=== PATIENT | female | born 1985 | race Caucasian/White ===

== ENCOUNTER 2020-10-05 22:58 | Observation (INO) | payer SELFPAY ==
[2020-10-06 00:15] VITALS: BMI 27.2
[2020-10-06] MEDS ORDERED: Acetaminophen 650 MG Suppository PR PRN (04:13)
[2020-10-06] MEDS ORDERED: Acetaminophen 325 MG TAB PO PRN (04:13)
[2020-10-06] MEDS ORDERED: HYDROcodone/Acetaminophen 5/325 mg Tablet PO PRN (04:13)
[2020-10-06] MEDS ORDERED: Ondansetron ODT 4 MG TAB PO PRN (04:13)
[2020-10-06] MEDS ORDERED: Calcium Carbonate 500 MG ChewTAB PO PRN (04:13)
--- NOTE | 2020-10-06 04:23 | PDOC.HHP ---
Hospitalist HPI - History of Present Illness L sided numbness History of Present Illness: Case of an 35y/o female with pmhx of ADHD who comes to hospital due to L sided numbness. patient refers she was on her usual state of health until today when while driving home she noted her that the L part of her mouth was numb with some associated drooling, she stated got home and took a bath and tried to sleep it off but the she began with L sided arm and leg numbness and paresthesia for which she decided to comes to hospital for evaluation. patient denies any focal motor deficiet, denies any previous similar events in the past. of note patient went skiing a few weeks back and had a couple of falls, also had a cupping massage yesterday. due to symptoms concerning for stroke hospitalist was called for admission. patient also denies any fever chills n/v or cough Hospitalist ROS - Review of Systems All other systems reviewed; all pertinent +/- noted in HPI/Subj Hospitalist History - Past Surgical History Past Surgical History: reports: - Family History Family History: reports: no pertinent history - Social History Smoking Status: Never smoker Alcohol: reports: None Drugs: reports: none Living Situation: With Family - Exam General Appearance: NAD, awake alert Eye: PERRL, anicteric sclera ENT: normocephalic atraumatic, no oropharyngeal lesions Neck: supple, symmetric, no JVD Heart: RRR, no murmur, no gallops Respiratory: CTAB, no wheezes, no rales Gastrointestinal: soft, non-tender, non-distended Extremities: no cyanosis, no clubbing, no edema Skin: normal turgor, no lesions, no rashes Neurological: cranial nerve grossly intact, normal sensation to touch Musculoskeletal: normal tone, normal strength, no muscle wasting Psychiatric: normal affect, normal behavior, A&O x 3 Hospitalist H&P A/P - Problem (1) CVA (cerebral vascular accident) Code(s): I63.9 - CEREBRAL INFARCTION, UNSPECIFIED Status: Acute - Plan Plan: case of an 35y/o female with the stated pmhx who presents with stroke like symptoms cva r/o - head ct negative for bleeding - mri -2d echo - carotid doppler - neurology evaluation - on secondary prevention with asa + statin - evaluation of modifiable risk factors with a1c + lipid panel - obs admit
[2020-10-06 07:55] VITALS: TEMP 97.6
[2020-10-06] MEDS ORDERED: Enoxaparin Sodium 40 MG/0.4 ML SYRINGE SC SCH (09:00)
[2020-10-06] MEDS ORDERED: Aspirin 81 mg Enteric Coated Tablet PO SCH (09:00)
--- NOTE | 2020-10-06 10:34 | MRI ---
MRI BRAIN NONCONTRAST: DATE: 10/06/2020. TIME: 8:21 a.m. HISTORY: A 35-year-old female with TIA. Acute onset numbness of left side of face, left upper extremity, an d lower extremity. FINDINGS: The ventricles are normal in size and configuration. In the left posterior frontal centrum semiovale , there is a tiny 0.7 x 0.4 x 0.4 cm T2 and FLAIR hyperintense lesion without restricted diffusion or associated hemorrhage. This is nonspecific. Statistically, this is most likely to represent a tiny focus of minimal chronic ischemic white matter change or migraine lesion. The other possibility of multiple sclerosis is less likely because it is only a single lesion, although that diagnosis is not ruled out. No evidence of acute infarction. Otherwise, there is no major intraaxial signal abnormal ity, restricted diffusion, midline shift or any other mass effect, recent intraaxial hemorrhage, or e xtraaxial fluid collection. IMPRESSION: 1. Single tiny left cerebral white matter lesion. 2. Otherwise, negative. jnR POS: JIN
[2020-10-06 11:49] VITALS: BP 107/61
--- NOTE | 2020-10-06 12:38 | PDOC.HOSPP ---
- Subjective Encounter Date: 10/06/20 Encounter Time: 10:15 Subjective: had left sided facial and exre numbness with tingling which has resolved now no weakness in any extremity, is amb in room no prior cva, fever, cough or sob - Objective Vital Signs & Weight: Vital Signs (12 hours) Temp Pulse Resp BP Pulse Ox 10/06/20 11:48 97.6 F 70 16 107/61 100 10/06/20 07:55 97.6 F 66 16 159/93 H 94 L 10/06/20 04:13 97.2 F L 66 18 90/53 L 99 Weight Weight 158 lb 14.4 oz I&O: 10/05/20 10/06/20 10/07/20 06:59 06:59 06:59 Intake Total 200 240 Balance 200 240 Hospitalist ROS - Medication Medications: Active Medications Generic Name Dose Route Start Last Admin Trade Name Freq PRN Reason Stop Dose Admin Aspirin 81 mg 10/06/20 09:00 10/06/20 08:29 Aspirin 81 Mg Enteric Coated Tablet PO 81 mg DAILY SUSHILA Administration Enoxaparin Sodium 40 mg 10/06/20 09:00 10/06/20 08:30 Enoxaparin Sodium 40 Mg/0.4 Ml Syringe SC 40 mg 0900 SUSHILA Administration - Exam General Appearance: awake alert Eye: PERRL, anicteric sclera ENT: no oropharyngeal lesions, moist mucosa Neck: supple, no JVD Heart: RRR, no murmur Respiratory: no wheezes, no rales Gastrointestinal: soft, non-tender, non-distended, normal bowel sounds Extremities: no cyanosis, no edema Neurological: cranial nerve grossly intact, no focal deficits Psychiatric: normal affect, A&O x 3 Hosp A/P (1) TIA (transient ischemic attack) Code(s): G45.9 - TRANSIENT CEREBRAL ISCHEMIC ATTACK, UNSPECIFIED Status: Resolved (2) ADD (attention deficit disorder) Code(s): F98.8 - OTH BEHAV/EMOTN DISORD W ONSET USLY OCCUR IN CHLDHD AND ADOL Status: Chronic Qualifiers: Hyperactivity presence: unspecified Qualified Code(s): F98.8 - Other specified behavioral and emotional disorders with onset usually occurring in childhood and adolescence (3) Dyslipidemia Code(s): E78.5 - HYPERLIPIDEMIA, UNSPECIFIED Status: Acute - Plan is on asp, lipitor MRI results noted, await neurology opinion no motor deficits hemo/neurostable may dc home if cleared by Neurology
--- NOTE | 2020-10-06 12:43 | ULT ---
BILATERAL CAROTID DUPLEX ULTRASOUND: HISTORY: TIA. Numbness in the left side of the mouth/face that went into the left arm and leg yesterday. TECHNIQUE: [place] scale ultrasound with color flow and spectral Doppler imaging of the extracranial carotid artery systems is performed bilaterally. FINDINGS: No significant plaque formation or intimal wall thickening is seen. The peak systolic velocity in the right ICA measures 100 cm/s with an end-diastolic velocity of 34 cm /s and a systolic ratio of 0.91. The peak systolic velocity in the left ICA measures 94 cm/s with an end-diastolic velocity of 29 cm/s and a systolic ratio of 0.76. Flow in both vertebral arteries remains antegrade. Incidental note is made of a prominent lymph node in the right neck measuring 2.2 x 1 x 0.4 cm. IMPRESSION: 1. No evidence of hemodynamically significant stenosis in either internal carotid artery. 2. Prominent right-sided cervical lymph node. This would be better evaluated with a contrast-enhanc ed CT scan of the neck. POS: AH
--- NOTE | 2020-10-06 13:30 | CON ---
NEUROLOGY CONSULTATION DATE OF CONSULTATION: 10/06/2020 REASON FOR CONSULTATION: Episode of left-sided numbness. HISTORY OF PRESENT ILLNESS: Ms. Kezia Baptiste is a 35-year-old female with medical history significant for ADHD, presented to the hospital with acute onset left- sided numbness. Per patient, she was in her usual health until 10/05/2020 when she was driving home and noted left side of her face was numb and associated drooling. She came home and then tried to sleep it off, but she started having tingling and paresthesias in the left upper and lower extremity, so she decided to come to the hospital for evaluation. The patient denies any motor weakness, nausea, vomiting, headache, chest pain, abdominal pain, recent illness or recent exposure to COVID-19. REVIEW OF SYSTEMS: All systems reviewed and were negative except the pertinent positives and negatives mentioned in the HPI. PAST SURGICAL HISTORY: section. FAMILY HISTORY: No significant family history. SOCIAL HISTORY: The patient lives with her family. Denies smoking, alcohol, illegal drug use. PHYSICAL EXAMINATION: Vital Signs (12 hours) Temp Pulse Resp BP Pulse Ox 10/06/20 11:48 97.6 F 70 16 107/61 100 10/06/20 07:55 97.6 F 66 16 159/93 H 94 L 10/06/20 04:13 97.2 F L 66 18 90/53 L 99 Weight Weight 158 lb 14.4 oz I&O: 10/05/20 10/06/20 10/07/20 06:59 06:59 06:59 Intake Total 200 240 Balance 200 240 Active Medications Generic Name Dose Route Start Last Admin Trade Name Christianq PRN Reason Stop Dose Admin Aspirin 81 mg 10/06/20 09:00 10/06/20 08:29 Aspirin 81 Mg Enteric Coated Tablet PO 81 mg DAILY SUSHILA Administration Enoxaparin Sodium 40 mg 10/06/20 09:00 10/06/20 08:30 Enoxaparin Sodium 40 Mg/0.4 Ml Syringe SC 40 mg 0900 SUSHILA Administration - Exam General Appearance: awake alert Eye: PERRL, anicteric sclera ENT: no oropharyngeal lesions, moist mucosa Neck: supple, no JVD Heart: RRR, no murmur Respiratory: no wheezes, no rales Gastrointestinal: soft, non-tender, non-distended, normal bowel sounds Extremities: no cyanosis, no edema Neurological: Mental status; the patient is alert and oriented to person, place, and time. Recent and remote memory intact. Speech is clear. Cranial nerves 2 through 12 intact. Motor, muscle tone and bulk are normal. Strength 5/5 bilaterally. Sensory intact. Cerebellar, finger-nose testing intact. Gait deferred due to patient's safety. DATA REVIEWED: I reviewed the MRI of the brain which was negative for acute intracranial pathology. ASSESSMENT AND PLAN: (1) TIA (transient ischemic attack) Code(s): G45.9 - TRANSIENT CEREBRAL ISCHEMIC ATTACK, UNSPECIFIED Status: Resolved (2) ADD (attention deficit disorder) Code(s): F98.8 - OTH BEHAV/EMOTN DISORD W ONSET USLY OCCUR IN CHLDHD AND ADOL Status: Chronic Qualifiers: Hyperactivity presence: unspecified Qualified Code(s): F98.8 - Other specified behavioral and emotional disorders with onset usually occurring in childhood and adolescence (3) Dyslipidemia Code(s): E78.5 - HYPERLIPIDEMIA, UNSPECIFIED Status: Acute Ms. Kezia Baptiste is a 35-year-old female, who presented with stroke-like symptoms. Head CT reviewed which was negative for acute intracranial pathology. MRI of the brain was also negative for acute intracranial pathology, most likely transient ischemic attack. Carotid Dopplers reviewed which was negative for acute hemodynamically significant stenosis. The patient is back to her baseline. Neuro checks every 4 hours. Continue aspirin and high-intensity statin for secondary stroke prevention. EEG to rule out cortical irritability is negative for seizure activity. Continue home medications. Continue medical management per primary team. There is a prominent right-sided cervical lymph node. Consider contrast enhanced CT of the neck inpatient or outpatient for further evaluation. The patient is counseled about healthy lifestyle and stroke prevention. All questions were answered. Check thrombosis panel for hypercoagulable state to further evaluate TIA in the young people. We will continue to follow. Thank you for the consult. Job ID: [id number] MTDD
[2020-10-06 13:35] LABS: Prothrombin Time 13.4 sec (12.0-14.7)
[2020-10-06 13:36] LABS: PTT 47.3 sec (22.9-36.1)
[2020-10-06 13:37] LABS: D-Dimer Test Less than 0.27 *mcg/mL (0.27-0.43)
--- NOTE | 2020-10-06 14:44 | PDOC.EEG ---
Neurology EEG Report - Report Report: This EEG was performed using 24 channel [employer] WiFi video EEG machine with 24 disc electrodes. This was an extended 2 hours 5 minutes of inpatient video EEG recording. Digital analysis of the EEG was done for spike and seizure detection which revealed no abnormalities. Background: The posterior background rhythm is 9-10 Hz. The background rhythm attenuates with eye opening and enhances with eye closure. Hyperventilation: No significant response. Photic Stimulation: Bioccipital symmetric driving response is observed. Sleep: No stage change is observed. EEG Diagnosis: Normal awake , drowsy and sleep EEG.
[2020-10-06 15:21] LABS: Hemoglobin 13.6 g/dL (12.0-16.0); Platelet Count 304 thou/uL (130-400)
[2020-10-06 15:33] LABS: BHCG - Serum Negative (NEGATIVE); Pregs Control Background? CLEAR/WHITE (CLR/WHITE); Pregs Control Bar Appear? YES (CONTROL BAR)
--- NOTE | 2020-10-06 15:54 | DIS ---
DATE OF ADMISSION: 10/05/2020 DATE OF DISCHARGE: 10/06/2020 DISCHARGE DISPOSITION: To home. PRIMARY DISCHARGE DIAGNOSIS: Transient ischemic attack with left-sided paresthesias, resolved. SECONDARY DISCHARGE DIAGNOSES: Attention deficit disorder, dyslipidemia. PROCEDURES DONE DURING HOSPITALIZATION: Carotid Doppler done showed no hemodynamically significant stenosis. There is incidental note of prominent lymph node in the right neck measuring 2 x 1 x 0.4 cm. MRI without contrast done showed single tiny left cerebral white matter lesion. No acute infarct. This lesion was seen in the left posterior frontal centrum semiovale area, measuring 0.7 x 0.4 x 0.4 cm. There was no restricted diffusion or associated hemorrhage seen in this area. EEG done showed normal awake, drowsy, and sleep EEG. H and H 13 and 42, platelet count 304. Pending labs, thrombosis panel to be followed by primary care physician. INPATIENT CONSULT: Dr. Solitario for Neurology. DISCHARGE MEDICATIONS: 1. Lipitor 40 mg p.o. daily. 2. Aspirin 81 mg p.o. daily. 3. Vyvanse 30 mg daily. ALLERGIES: ALLERGIC TO METHOCARBAMOL. DISCHARGE PLAN: The patient to follow up with her primary care physician in [address] Olvera in 2 to 3 weeks. BRIEF COURSE DURING HOSPITALIZATION: The patient initially came in with complaints of left facial and left upper and lower extremity numbness and tingling. In view of this history, she was placed under observation on stroke unit. She has had complete stroke protocol followed, which showed no evidence of acute infarct. Her MRI incidentally revealed left posterior frontal centrum semiovale tiny T2 and FLAIR hyperintense lesion in the white matter. Her paresthesias have completely resolved. She is ambulating and eating well. She was evaluated by Dr. Solitario for Neurology. The patient is wanting to go home and will be shortly discharged home. She is hemodynamically stable. Please see a [id number] documentation for the day of discharge on [employer]. She is adviced and counselled to f/u with for the MRI findings in the white matter area for further work up if needed. Job ID: [id number] MTDD
[2020-10-06] MEDS ORDERED: Atorvastatin Calcium 40 MG TAB PO SCH (21:00)
[2020-10-10 17:40] LABS: Cardiolipin IgA Ab 0.7 APL-U/mL (<14 Negative); Cardiolipin IgM Ab 1.3 MPL-U/mL (<10 Negative); EliA APS New Method **** NEW METHOD ****
[2020-10-14 12:32] LABS: Protein C Activity 110 % (78-152)
[2020-10-14 12:36] LABS: Factor VIII Test 79.8 % ACTIVE (56-157)
[2020-10-14 16:27] LABS: HEX PHOS LA Tube 1 45.9 SEC; HEX PHOS LA Tube 2 43.6 SEC; Hexagonal Phospholipid Neut 2.4 SEC (0-8.0)
== END 2020-10-06 15:45 | disposition home or self-care (01) ==
LOC: 2SE 23:34
PROVIDERS: ADMIT Internal Medicine; ATTEND Internal Medicine
DX: G45.9 Transient cerebral ischemic attack, unspecified (principal); F90.9 Attention-deficit hyperactivity disorder, unspecified type; E78.5 Hyperlipidemia, unspecified; Z79.899 Other long term (current) drug therapy
CPT/HCPCS: 36415; 70551; 83090; 84703; 85014; 85018; 85049; 85240; 85300; 85303; 85305; 85307; 85379; 85598; 85610; 85730; 86147; 93880; 95712; 95819; 95957; 96372; G0378; J1650

== ENCOUNTER 2023-05-28 07:26 | Outpatient (CLI) | payer BC ==
[2023-05-28] MEDS ORDERED: Iopamidol 370 76% 100 ML VIAL ONE (11:02)
== END 2023-05-28 07:27 | disposition home or self-care (01) ==
LOC: BICCT 07:26
DX: N94.89 Other specified conditions associated with female genital organs and menstrual cycle (principal)
CPT/HCPCS: 74177; Q9967